=== PATIENT | male | born 1940 | race Caucasian/White ===

== ENCOUNTER → 2017-01-02 | Outpatient (CLI) | payer MEDICARE, OTHER ==
[~2017-01-02] MED LIST: ASPI325T PO; BENI40TA30 PO; GLUCTAB PO; HYDR50TA5 PO; LIPI40TA PO; NITR0.4S SL; SEA-1000 PO; VIAG50TA PO; VITA50TA3 PO; WAL-10TA2 PO
--- NOTE | 2017-01-06 15:20 | RADRPT ---
EXAM DATE/TIME: 01/02/2017 09:14 [place] COMPARISON : No previous studies available for comparison. INDICATIONS : Review images for possible AAA endoleak repair. PAST MEDICAL HISTORY : 1. Diabetes mellitus 2. 2. Coronary artery disease PAST SURGICAL HISTORY : 1. AAA stent repair 2013 2. CABG IMAGING STUDIES: Outside CT of the abdomen from 12-25-2016 was reviewed. This does show a persistent endoleak which daniel ears that have afferent and efferent drainage via the lumbars without MARI contribution. Please note this was not a dedicated CTA so anatomic detail of vascular structures is limited. However, overall, I do not believe there is significant increase in the aneurysm sac size ASSESSMENT: Small type II endoleak, unchanged. I believe the aneurysm sac size is fairly stable as well. PLAN: Repeat CTA of the abdomen in one year Ruddy Martinez MD on January 06, 2017 at 12:00 Board Certified Radiologist. This report was verified electronically.
== END ==
LOC: HRAD 09:12
PROVIDERS: ATTEND Surgery Vascular Surgery
DX: Z09 Encounter for follow-up examination after completed treatment for conditions other than malignant neoplasm (principal); I71.3 Abdominal aortic aneurysm, ruptured; I25.10 Atherosclerotic heart disease of native coronary artery without angina pectoris; E11.9 Type 2 diabetes mellitus without complications